=== PATIENT | female | born 1995 | race American Indian/Alaskan Native ===

== ENCOUNTER 2018-04-30 20:26 | Emergency (ER) | payer SELFPAY ==
[2018-04-30 20:32] VITALS: BP 120/69
[2018-04-30 21:53] LABS: HCG Qualitative,Urine Negative (Negative)
[2018-04-30 21:54] LABS: Bilirubin,Urine NEG (Negative); Blood,Urine NEG (Negative); Color,Urine Straw (Yellow); Mucus,Urine FEW /HPF; Protein,Urine <15 mg/dL mg/dL (Negative); Urobilinogen,Urine < 2.0 mg/dL (<2.0)
--- NOTE | 2018-04-30 23:45 | Emergency Department Report ---
ED Female HPI - General Chief complaint: Abdominal Pain Stated complaint: PELVIC PAIN Time Seen by Provider: 04/30/18 23:44 Source: patient Mode of arrival: Ambulatory Limitations: No Limitations - Related Data Allergies Allergy/AdvReac Type Severity Reaction Status Date / Time No Known Allergies Allergy Unverified 04/30/18 21:31 ED Review of Systems ROS: Stated complaint: PELVIC PAIN Other details as noted in HPI ED Past Medical Hx - Past Medical History Previous Medical History?: No - Surgical History Additional Surgical History: - Social History Smoking Status: Never Smoker Substance Use Type: Marijuana ED Physical Exam - General Limitations: No Limitations ED Course Vital Signs 04/30/18 04/30/18 20:24 21:26 Temperature 99.0 F Pulse Rate 94 H Respiratory 18 Rate Blood Pressure 120/69 O2 Sat by Pulse 100 99 Oximetry Critical care attestation.: If time is entered above; I have spent that time in minutes in the direct care of this critically ill patient, excluding procedure time. ED Disposition Disposition: -07 ELOPED Condition: Undetermined Instructions: Abdominal Pain (ED) Referrals: PRIMARY CARE, [Primary Care Provider] - 3-5 Days
== END 2018-05-01 00:34 | disposition left against medical advice (07) ==
LOC: ED 20:26
DX: R10.2 Pelvic and perineal pain (principal); F12.10 Cannabis abuse, uncomplicated
CPT/HCPCS: 81001; 81025; 99283

== ENCOUNTER 2020-03-22 07:09 | Inpatient (IN) | payer BC ==
[2020-03-22] MEDS: LACTATED RINGERS 1,000 ML IV SCH ×2 (07:30→07:58)
[2020-03-22] MEDS ORDERED: BICITRA ORAL LIQD 30ML PO NR (07:34)
[2020-03-22] MEDS ORDERED: FAMOTIDINE 20 MG/2 ML INJ IV NR (07:34)
[2020-03-22] MEDS ORDERED: METOCLOPRAMIDE 10 MG/2 ML INJ IV NR (07:34)
--- NOTE | 2020-03-22 07:40 | History and Physical Report ---
History of Present Illness Date of examination: 03/22/20 (pt presented with profuse bleeding @ 36w Prev c/s) Chief complaint: Bleeding this AM "It just kept coming and ran down my legs." History of present illness: EDC 04-15-20 2014 primary c/s for CPD girl [facility] Denies smoking, ETOH, drugs denies STD Last US @ 36w; LGA 7-8 No evidence previa Past History - Obstetrical History Expected Date of Delivery: 04/15/20 Actual Gestation: 36 Week(s) 4 Day(s) : 2 Para: 1 (c/s for CPD) Hx # Term Pregnancies: 1 Number of Pregnancies: 0 Spontaneous Abortions: 0 Induced : 0 Number of Living Children: 1 Medications and Allergies Allergies Allergy/AdvReac Type Severity Reaction Status Date / Time No Known Allergies Allergy Unverified 04/30/18 21:31 Active Meds: Active Medications Citric Acid/Sodium Citrate (Bicitra) 30 ml PO ONCE ONE Stop: 03/22/20 07:35 Famotidine (Pepcid) 20 mg IV ONCE ONE Stop: 03/22/20 07:35 Oxytocin/Sodium Chloride (Pitocin/Ns 20 Unit/1000ml Drip) 20 units in 1,000 mls @ 0 mls/hr IV TITR NIHARIKA Lactated Ringer's (Lactated Ringers) 1,000 mls @ 2,250 mls/hr IV PREOP NIHARIKA Stop: 03/23/20 08:27 Cefazolin Sodium (Ancef/Sterile Water 2 Gm/20 Ml) 2 gm in 20 mls @ 80 mls/hr IV PREOP NR; Protocol Metoclopramide HCl (Reglan) 10 mg IV ONCE ONE Stop: 03/22/20 07:35 - Vital Signs Vital signs: Vital Signs Pulse Pulse Ox 116 H 98 03/22/20 07:12 03/22/20 07:12 Temp Pulse Resp BP Pulse Ox 98.7 F 107 H 119/81 100 03/22/20 07:33 03/22/20 07:34 03/22/20 07:34 03/22/20 07:32 - Physical Exam Breasts: Positive: deferred Cardiovascular: Regular rate, Normal S1, Normal S2 Lungs: Positive: Clear to auscultation Abdomen: Positive: normal appearance, soft, normal bowel sounds. Negative: distention, tenderness Genitourinary (Female): Positive: normal external genitalia Vulva: both: normal Vagina: Positive: normal moisture. Negative: discharge Cervix: Negative: lesion, discharge Uterus: Positive: normal size, normal contour Adnexa: both: normal Anus/Rectum: Positive: normal perianal skin, heme negative. Negative: rectal mass, hemorrhoids Extremities: Positive: normal Deep Tendon Reflex Grade: Normal +2 - Obstetrical FHR: category 1 Uterine Contraction Monitor Mode: External Cervical Dilatation: 6 Cervical Effacement Percentage: 70 station: -4 Uterine Contraction Pattern: Regular Uterine Tone Measurement Phase: Resting Uterine Contraction Intensity: Strong/Firm Results Result Diagrams: 03/22/20 07:30 03/22/20 07:30 All other labs normal. all labs ordered Assessment and Plan 24yo @ 36weeks with profuse bleeding that started this AM. CTX Q 1-4min, moderate. Gentle sve 6,70,-4 Pt is a previous c/s She was receiving care @ [facility]. Records are being requested. Explained to pt and SO that her condition warrants moving forward with repeat section. Risks: bleeding, damage to surrounding organs, need for blood transfusion. All concerns voiced and answered. Dr Contreras on unit. NICU and Anesthesia notified. Consents signed. - Patient Problems (1) Previous section Onset Date: ~03/22/20 Current Visit: Yes Status: Acute (2) Bleeding Onset Date: ~03/22/20 Current Visit: Yes Status: Acute
--- NOTE | 2020-03-22 07:44 | Anesthesia Day of Surgery ---
Anesthesia Day of Surgery - Day of Surgery Patient Examined: Yes Patient H&P Reviewed: Yes Patient is NPO: No (0300) Beta Blockers: No Cardiac Clearance: No Pulmonary Clearance: No Arsenio's Test: N/A
[2020-03-22] MEDS ORDERED: NALOXONE 0.4 MG/1 ML INJ IV PRN ×2 (07:46→10:56)
[2020-03-22] MEDS ORDERED: ONDANSETRON 4 MG/2 ML INJ IV PRN (07:46)
[2020-03-22] MEDS ORDERED: HYDROmorphone 1 MG/1 ML INJ IV PRN (07:46)
--- NOTE | 2020-03-22 07:46 | Anesthesia Consultation ---
Anesthesia Consult and Med Hx Date of service: 03/22/20 - Airway Anesthetic Teeth Evaluation: Good ROM Head & Neck: Adequate Mental/Hyoid Distance: Adequate Mallampati Class: Class III Intubation Access Assessment: Probably Good - Pulmonary Exam CTA: Yes - Cardiac Exam Cardiac Exam: RRR - Pre-Operative Health Status ASA Pre-Surgery Classification: ASA3, Emergency Proposed Anesthetic Plan: Spinal - Pulmonary Hx Smoking: No Hx Asthma: No Hx Respiratory Symptoms: No SOB: No COPD: No Home Oxygen Therapy: No Hx Pneumonia: No Hx Sleep Apnea: No - Cardiovascular System Hx Hypertension: No Hx Coronary Artery Disease: No Hx Heart Attack/AMI: No Hx Angina: No Hx Percutaneous Transluminal Coronary Angioplasty (PTCA): No Hx Cardia Arrhythmia: No Hx Pacemaker: No Hx Internal Defibrillator: No Hx Valvular Heart Disease: No Hx Heart Murmur: No Hx Peripheral Vascular Disease: No - Central Nervous System Hx Neuromuscular Disorder: No Hx Seizures: No CVA: No Hx Back Pain: Yes Hx Psychiatric Problems: No - Gastrointestinal Hx Ulcer: No Hx Gastroesophageal Reflux Disease: No - Endocrine Hx Renal Disease: No Hx End Stage Renal Disease: No Hx Cirrhosis: No Hx Liver Disease: No Hx Insulin Dependent Diabetes: No Hx Non-Insulin Dependent Diabetes: No Hx Thyroid Disease: No Hx Hypothyroidism: No Hx Hyperthyroidism: No - Hematic Hx Anemia: No Hx Sickle Cell Disease: No - Other Systems Hx Alcohol Use: No Hx Substance Use: No Hx Cancer: No Hx Obesity: Yes
[2020-03-22 07:49] LABS: Basophils % (Auto) 0.3 % (0.0-1.8); Eosinophils # (Auto) 0.1 K/mm3 (0.0-0.4); Eosinophils % (Auto) 0.8 % (0.0-4.3); Hematocrit 32.2 % (30.3-42.9); Hemoglobin 10.5 gm/dl (10.1-14.3); Lymphocytes # (Auto) 1.9 K/mm3 (1.2-5.4); Lymphocytes % (Auto) 24.7 % (13.4-35.0); Mean Corpuscular HGB Conc 33 % (30-34); Monocytes # (Auto) 0.7 K/mm3 (0.0-0.8); Monocytes % (Auto) 9.2 % (0.0-7.3); Platelet Count 185 K/mm3 (140-440); Red Blood Count 4.91 M/mm3 (3.65-5.03); Red Cell Distribution Width 19.4 % (13.2-15.2)
[2020-03-22] MEDS ORDERED: DEXMEDETOMIDINE 200 MCG/2 ML VIAL IV ONE (07:53)
[2020-03-22] MEDS ORDERED: ONDANSETRON 4 MG/2 ML INJ ONE (07:53)
[2020-03-22] MEDS ORDERED: KETOROLAC 30 MG/1 ML INJ ONE (07:53)
[2020-03-22 07:54] LABS: Mean Corpuscular Volume 66 fl (79-97)
[2020-03-22] MEDS ORDERED: OXYTOCIN 20 UNIT/1000ML DRIP 20 UNITS/1,000 ML BAG IV SCH ×2 (08:00→10:56)
[2020-03-22] MEDS ORDERED: ceFAZolin/Water 2 GM/20 ML 2 GM/20 ML SYRINGE IV NR (08:00)
[2020-03-22 08:09] LABS: Alanine Aminotransferase 16 units/L (7-56); Albumin 3.5 g/dL (3.9-5); BUN/Creatinine Ratio 12; Blood Urea Nitrogen 6 mg/dL (7-17); Calcium 9.4 mg/dL (8.4-10.2); Hemolysis Index 0
[2020-03-22] MEDS ORDERED: SODIUM CHLORIDE 0.9% IRR 1,500 ML BOTTLE IR ONE (08:15)
[2020-03-22] MEDS ORDERED: WATER FOR IRRIG STERILE 1,500 ML BOTTLE IR ONE (08:15)
[2020-03-22] MEDS ORDERED: OXYTOCIN 10 UNIT/1 ML INJ ONE (08:39)
[2020-03-22] MEDS ORDERED: PHENYLEPHRINE/NS 1,000 MCG/10 ML SYRINGE (OR USE) IV ONE (08:45)
[2020-03-22] MEDS ORDERED: BUPIVACAINE/PF (0.25%) 2.5 MG/ML 10 ML VIAL INFILTRATI ONE (09:26)
[2020-03-22] MEDS ORDERED: MORPHINE 2 MG/1 ML INJ IV PRN (10:56)
[2020-03-22] MEDS ORDERED: WITCH HAZEL/ GLYCERIN PAD TP PRN (10:56)
[2020-03-22] MEDS ORDERED: LANOLIN/ZINC/DIMETHICONE (LANSINOH) 7 GM TP PRN (10:56)
[2020-03-22] MEDS: D5W/LACTATED RINGERS 1,000 ML IV SCH ×2 (11:43→19:56)
[2020-03-22 11:51] LABS: Hepatitis C Virus Antibody Non-Reactive (NonReactive)
[2020-03-22] MEDS: ACETAMINOPHEN 325 MG TAB PO SCH ×2 (12:41→20:48)
[2020-03-22] MEDS: ceFAZolin/NS 1 GM/50 ML 1 GM/50 ML BAG IV SCH (15:08)
[2020-03-22] MEDS: KETOROLAC 30 MG/1 ML INJ IV SCH ×2 (15:10→20:46)
[2020-03-22 19:25] LABS: Amphetamine Screen,Urine PRESUMPTIVE NEGATIVE; Benzodiazepines Screen,Urine PRESUMPTIVE NEGATIVE; Cannabinoid Screen,Urine PRESUMPTIVE NEGATIVE; Cocaine Screen,Urine PRESUMPTIVE NEGATIVE; Methadone Screen,Urine PRESUMPTIVE NEGATIVE; Opiate Screen,Urine PRESUMPTIVE NEGATIVE
[2020-03-22 20:37] LABS: Hematocrit 25.7 % (30.3-42.9); Hemoglobin 8.4 gm/dl (10.1-14.3)
--- NOTE | 2020-03-22 22:36 | Operative Report ---
Operative Report Operative Report: Date of operation: 03/22/2020 Pre-operative diagnosis: 1. 36 weeks gestational age 2. Vaginal bleeding 3. Previous delivery desires repeat 4. BMI 35.6 kg/m 5. Active labor Post-operative diagnosis: 1. 36 weeks gestational age 2. Vaginal bleeding 3. Previous delivery desires repeat 4. BMI 35.6 kg/m 5. Active labor Procedure name(s): Primary low transverse delivery Surgeon: Karen Contreras MD Health Information Technologist: Kelsey Reis [facility] Anesthesia: Combined spinal epidural EBL: 800 mL Urine output: 400 mL of clear urine out at the end of the procedure Fluids: 1500 mL Findings: Liveborn male weight 6 Lbs. 10 oz. Apgars of 8 and 9 at one and 5 minutes Indications: This is a 24-year-old female 2 para 1 who received care at [facility]. No records were available at the time of her evaluation. Patient states her EDC was April 15, 2020. She presented to triage complaining of vaginal bleeding and pain. Stated she was known to have a low- lying placenta and was scheduled for a in April 11, 2020. Patient had moderate bleeding from the vagina with a cervical dilation of 6 cm. Patient agreed to proceed with repeat delivery. Procedure: Patient was taking to the operating room. Combined spinal epidural anesthesia was placed. Patient was then prepped and draped in the usual sterile fashion Timeout was performed. Once an appropriate level of anesthesia was noted, a Pfannenstiel incision was made and extended the fascia which was incised and extended lateral direction. The overlying fascia was sharply dissected away from the underlying rectus muscles in the superior inferior direction. The midline was entered bluntly. Bladder blade was placed. Vesicouterine fold was incised with blunt dissection bladder flap was created. A transverse incision was made in the lower uterine segment and extended superolateral direction with finger fractionation. Clear fluid was noted. was delivered from the cephalic position, with spontaneous cry and excellent tone. Mouth and nose bulb suctioned. Cord was doubly clamped and cut was given to the resuscitation team present. Placenta was delivered. She was noted to have a dense adhesion of the right fundal region of the uterus to the anterior abdominal wall therefore the uterus was unable to be exteriorized. The uterus was cleaned of any further placental tissue and products of conception. Uterine incision was approximated using 0 Vicryl in a running interlocking stitch followed by further suture of 0 Vicryl in imbricating fashion. Pelvis was irrigated with warm normal saline. She had a significant diastasis of the rectus muscles. Therefore the muscles were not able to be reapproximated however the peritoneum was closed with 3-0 Vicryl with 2 [id number] stitches. Once hemostasis was noted the fascia was approximated using 0 Vicryl simple running stitch. The incision was irrigated with warm saline, once hemostasis as noted, the subcuticular adipose tissue was reapproximated using 3-0 Vicryl in a simple running fashion. Skin was approximated using 4-0 Vicryl on a Omari needle in a subcuticular manner. Counts were correct x3. Patient tolerated the procedure well, she was taken to recovery room in stable condition.
[2020-03-23] MEDS: ceFAZolin/NS 1 GM/50 ML 1 GM/50 ML BAG IV SCH (00:28)
[2020-03-23] MEDS: oxyCODONE /ACETAMINOPHEN 5-325MG TAB PO PRN ×2 (04:54→16:58)
--- NOTE | 2020-03-23 08:02 | Progress Note ---
Assessment and Plan patient resting w/o complaints. postop H&H 8.4/25.7, asymptomatic anemia from blood loss. VSSAF - Patient Problems (1) delivery delivered Current Visit: Yes Status: Acute Plan to address problem: continue postop pathway advance diet and activity as tolerated remove dressing after shower this afternoon anticipate d/c home tomorrow if stable. Subjective - Subjective Date of service: 03/23/20 Principal diagnosis: postop day #1 s/p repeat c/s Patient reports: appetite normal, voiding normally, pain well controlled, flatus, ambulating normally, no dizzy ambulation, no nauseated : doing well, bottle feeding Objective - Vital Signs Latest vital signs: Vital Signs Temp Pulse Resp BP BP Pulse Ox 03/23/20 04:54 16 03/23/20 00:00 98 F 66 16 108/74 03/22/20 20:48 18 03/22/20 20:46 18 03/22/20 19:30 98.6 F 69 16 104/59 03/22/20 16:01 97.9 F 98 H 20 113/76 98 03/22/20 12:41 20 03/22/20 11:42 20 03/22/20 10:26 98.0 F 03/22/20 10:15 98 H 13 114/68 99 03/22/20 10:00 94 H 12 101/58 99 03/22/20 09:45 98 H 15 100/50 97 03/22/20 09:30 91 H 20 96/45 97 03/22/20 09:25 93 H 20 96/42 95 03/22/20 09:22 94 H 15 90/41 96 03/22/20 09:20 97.7 F 03/22/20 08:02 109 H 98 Intake and Output 03/22/20 03/22/20 03/23/20 15:59 23:59 07:59 Intake Total 1770 1200 200 Output Total 3950 1600 900 Balance -2180 -400 -700 Intake: IV 1650 1000 ANCEF/NS 1 GM/50 ML 1 gm 50 In 50 ml @ 100 mls/hr IV Q8H NIHARIKA Rx#:[id number] D5lr 1,000 ml @ 125 mls/ 1000 hr IV DIRECT NIHARIKA Rx#: [id number] Oral 120 200 200 Output: Urine 3950 1600 900 Indwelling Catheter 900 1000 Uretheral ([place]) 2400 Void 600 900 Other: Total, Intake Amount 120 200 200 Total, Output Amount 900 600 600 # Voids Void 1 1 Estimated Blood Loss 800 - Exam Breasts: Present: normal Cardiovascular: Present: Regular rate Lungs: Present: Clear to auscultation, Normal air movement Abdomen: Present: normal appearance, soft Vulva: both: normal Uterus: Present: normal, firm, fundal height below umbilicus Extremities: Present: normal Deep Tendon Reflex Grade: Normal +2 Incision: Present: normal, dry, dressed - Labs Labs: Abnormal lab results 03/22/20 03/22/20 Range/Units 07:30 20:24 Hgb 8.4 L (10.1-14.3) gm/dl Hct 25.7 L D (30.3-42.9) % BUN 6 L (7-17) mg/dL Creatinine 0.5 L (0.7-1.2) mg/dL Alkaline Phosphatase 230 H (35-129) units/L Albumin 3.5 L (3.9-5) g/dL
[2020-03-23] MEDS: DOCUSATE SODIUM 100 MG CAP PO SCH ×2 (09:15→21:55)
[2020-03-23] MEDS: FERROUS SULFATE 325 MG TAB PO SCH ×2 (09:15→21:55)
[2020-03-23] MEDS ORDERED: oxyCODONE /ACETAMINOPHEN 5-325MG TAB PO PRN (09:19)
[2020-03-23] MEDS: IBUPROFEN 800 MG TAB PO PRN ×2 (10:00→21:56)
--- NOTE | 2020-03-23 10:12 | Post Anesthesia Evaluation ---
- Post Anesthesia Evaluation Patient Participated: Yes Airway Patent: Yes Stable Respiratory Function: Yes Nausea/Vomiting: No Temp > 96.8F: Yes Pain Manageable: Yes Adequeate Hydration: Yes Anesthesia Complications: No Block Receding Appropriately: Yes Patient on Ventilator: No
[2020-03-23] MEDS ORDERED: DIPHtheria,PERTUSSIS(ACELL),TETANUS VACCINE/PF 0.5 ML VIAL IM ONE (12:00)
[2020-03-23] MEDS: ACETAMINOPHEN 325 MG TAB PO SCH (21:56)
[2020-03-24] MEDS: oxyCODONE /ACETAMINOPHEN 5-325MG TAB PO PRN ×2 (00:29→11:57)
[2020-03-24] MEDS: ACETAMINOPHEN 325 MG TAB PO SCH (06:40)
[2020-03-24] MEDS: IBUPROFEN 800 MG TAB PO PRN ×2 (06:41→13:20)
--- NOTE | 2020-03-24 08:24 | Discharge Summary ---
Providers - Providers Date of Admission: 03/22/20 07:30 Date of discharge: 03/24/20 (Pt agrees to discharge) Attending physician: MOIZ FISCHER 03/22/20 10:56 Consult to Aircraft Mechanic [CONS] Routine Reason For Exam: Primary care physician: P[employer]ER Hospitalization Reason for admission: vaginal bleeding (Moderate vaginal bleeding on admission) Delivery: Procedure: repeat low transverse Episiotomy: none Laceration: none Incision: normal, dry, intact Other procedures: none complications: none Discharge diagnosis: IUP at term delivered [place] baby: male Hospital course: Uncomplicated Repeat LTCS Vaginal bleeding, possible abruption Patient receiving care at [facility] S: Patient denies any concerns and desires to go home O: pt resting in bed with on abdomen. Fundus firm and incision dry and intact. Small lochia. No lower extremity edema A: S/p repeat LTCS, Pumping well per patient. Doing well P: Discharge home today with instructions. Patient will f/u with [facility]. RTO 1 week for circ and postop care. Condition at discharge: Good Disposition: DC-01 TO HOME OR SELFCARE - Discharge Diagnoses (1) delivery delivered Status: Acute Comment: RTO 1 week post op Plan - Discharge Medications Prescriptions: Lidocain2.5%/Prilocai2.5% [Emla] 5 gm TP ONCE #1 tube Ibuprofen [Motrin 800 MG tab] 800 mg PO Q6H PRN #30 tablet PRN Reason: Pain, Mild (1-3) oxyCODONE /ACETAMINOPHEN [Percocet 5/325 mg] 2 tab PO Q6H PRN #14 tablet PRN Reason: Pain, Moderate (4-6) - Provider Discharge Summary Activity: routine, no sex for 6 weeks, no heavy lifting 4 weeks, no strenuous exercise Diet: routine Instructions: routine Additional instructions: [] Smoking cessation referral if applicable(refer to patient education folder for contact #) [] Refer to [facility] Booklet Call your doctor immediately for: * Fever > 100.5 * Heavy vaginal bleeding ( >1 pad per hour) * Severe persistent headache * Shortness of breath * Reddened, hot, painful area to leg or breast * Drainage or odor from incision. * Keep incision clean and dry at all times and follow doctor's instructions regarding bathing/showering - Follow up plan Follow up: PRIMARY CARE,MD [Primary Care Provider] - 7 Days ISAIAS MARTIN CNM [Advanced Practice Nurse] - 7 Days (Congratulations! Please call [phone] to schedule your post operative and your son's circumcision visit in 1 week Bring EMLA cream with you to his visit. Do NOT use at home. Take medications as prescribed Call with any concerns)
[2020-03-24] MEDS: DOCUSATE SODIUM 100 MG CAP PO SCH (09:56)
[2020-03-24] MEDS: FERROUS SULFATE 325 MG TAB PO SCH (09:56)
[2020-03-24 15:22] VITALS: BP 103/68
== END 2020-03-24 14:37 | disposition home or self-care (01) | DRG 788 ==
LOC: TRG 07:09 → APU 07:10 → TRG 07:28 → APU 07:30 → OB 10:49
PROVIDERS: ADMIT Obstetrics & Gynecology; ATTEND Obstetrics & Gynecology
PROC: 10D00Z1 Extraction of Products of Conception, Low, Open Approach (ICD-10-PCS; principal; 2020-03-22)
PROC: 3E0234Z Introduction of Serum, Toxoid and Vaccine into Muscle, Percutaneous Approach (ICD-10-PCS; 2020-03-23)
DX: O99.214 Obesity complicating childbirth (principal); E66.9 Obesity, unspecified; Z3A.36 36 weeks gestation of pregnancy; Z37.0 Single live birth; Z23 Encounter for immunization; O99.02 Anemia complicating childbirth; D50.0 Iron deficiency anemia secondary to blood loss (chronic); O34.211 Maternal care for low transverse scar from previous cesarean delivery
CPT/HCPCS: 36415; 80053; 80307; 85014; 85018; 85025; 86592; 86706; 86762; 86803; 86850; 86900; 86901; 87806; 88307; G0378; J0690; J1885; J2270; J2370; J2405; J2590; J2765; J3490; J7120; J7121